=== PATIENT | male | born 1990 | race Caucasian/White ===

== ENCOUNTER 2016-12-05 01:29 | Emergency (ER) | payer OTHER ==
[~2016-12-05] VITALS: Ht 172.7 cm; Wt 111.0 kg
[2016-12-05] MEDS ORDERED: ONDANSETRON 4MG ODT PO ONE (03:30)
[2016-12-05] MEDS ORDERED: HYDROCODONE/ACETAMINOPHEN 5/325MG TABLET PO ONE (03:30)
[2016-12-05 04:48] VITALS: BP 123/64
== END 2016-12-05 05:17 | disposition home or self-care (01) ==
LOC: ER 01:29
DX: S62.306A Unspecified fracture of fifth metacarpal bone, right hand, initial encounter for closed fracture (principal); F17.210 Nicotine dependence, cigarettes, uncomplicated; F12.10 Cannabis abuse, uncomplicated; W22.01XA Walked into wall, initial encounter; Y93.89 Activity, other specified; Y92.89 Other specified places as the place of occurrence of the external cause; Y99.8 Other external cause status
CPT/HCPCS: 29125; 73090; 73130; 99284; Q0162

== ENCOUNTER 2024-07-17 09:38 | Emergency (ER) | payer SELFPAY ==
[~2024-07-17] VITALS: Ht 170.2 cm; Wt 102.0 kg
[2024-07-17 09:47] VITALS: BP 141/67; PULSE 120; RESP 19; TEMP 98.6; O2SAT 100
[2024-07-17] MEDS: FUROSEMIDE 40MG/4ML VIAL IVP SCH (11:21)
[2024-07-17 11:33] LABS: BASOPHILS % 1.7 % (0.0-2.0); DIFFERENTIAL COMMENT 0; EOSINOPHILS % 0.5 % (0.0-5.0); HEMATOCRIT. 26.6 % (42.0-52.0); HEMOGLOBIN. 8.7 g/dL (14.0-18.0); MEAN CORPUSCULAR HEMOGLOBIN 35.7 pg (28.0-32.0); MEAN CORPUSCULAR HGB CONC 32.8 g/dL (31.0-37.0); MEAN CORPUSCULAR VOLUME 108.7 fL (80.0-94.0); MONOCYTES % 8.2 % (2.0-8.0); NEUTROPHILS % 79.6 % (40.0-76.0); PLATELET 110 x1000/uL (130-400); RED BLOOD CELL COUNT 2.45 mill/uL (4.7-6.1); RED CELL DISTRIBUTION WIDTH 16.4 % (11.6-14.6); WHITE BLOOD COUNT 6.5 x1000/uL (4.5-11.0)
[2024-07-17 11:40] LABS: CHLORIDE 98 mEq/L (98-107); SODIUM 130 mEq/L (136-145)
[2024-07-17 11:42] LABS: CARBON DIOXIDE 24 mEq/L (21-32)
[2024-07-17 11:46] LABS: CREATININE 0.7 mg/dL (0.6-1.3)
[2024-07-17 11:47] LABS: GLUCOSE 104 mg/dL (70-105); UREA NITROGEN BLOOD 8 mg/dL (9-23)
[2024-07-17 12:29] LABS: TROPONIN I HIGH SENSITIVITY < 4 ng/L (3.0-53)
[2024-07-17 12:46] LABS: ALANINE AMINOTRANSFERASE 81 IU/L (10-49); ALBUMIN 3.5 g/dL (3.2-4.8); ASPARTATE AMINOTRANSFERASE 255 IU/L (<34)
[2024-07-17 12:47] LABS: BILIRUBIN TOTAL 4.4 mg/dL (0.1-1.0); PROTEIN TOTAL 9.2 g/dL (6.0-8.3)
[2024-07-17 15:12] LABS: TROPONIN I HIGH SENSITIVITY < 4 ng/L (3.0-53)
== END 2024-07-17 15:20 | disposition left against medical advice (07) ==
LOC: ER 09:48 → EDBEDREQ 11:05 → ER 15:20
DX: R60.0 Localized edema (principal); K74.60 Unspecified cirrhosis of liver; D64.9 Anemia, unspecified; F12.90 Cannabis use, unspecified, uncomplicated; F10.20 Alcohol dependence, uncomplicated
CPT/HCPCS: 99285; 93970; 96374; 71045; 80076; 80048; 83880; 85025; 84484; 93005; 36415; J1940

== ENCOUNTER 2025-02-14 18:45 | Inpatient (IN) | payer MEDICAID ==
[~2025-02-14] VITALS: Ht 167.6 cm; Wt 99.8 kg
[2025-02-14 19:16] LABS: MEAN PLATELET VOLUME 8.4 fl (7.4-10.4); PLATELET 101 x1000/uL (130-400); RED BLOOD CELL COUNT 1.29 mill/uL (4.7-6.1); RED CELL DISTRIBUTION WIDTH 25.8 % (11.6-14.6)
[2025-02-14 19:21] LABS: HEMATOCRIT. 13.8 % (42.0-52.0); HEMOGLOBIN. 4.2 g/dL (14.0-18.0)
[2025-02-14 19:30] LABS: CREATININE 0.9 mg/dL (0.6-1.3); UREA NITROGEN BLOOD 23 mg/dL (9-23)
[2025-02-14 19:31] LABS: ETHANOL BLOOD < 10 mg/dL (<10)
[2025-02-14 19:32] LABS: ASPARTATE AMINOTRANSFERASE 156 IU/L (<34); BILIRUBIN DIRECT 4.9 mg/dL (<=3.0); BILIRUBIN TOTAL 8.6 mg/dL (0.1-1.0); INR 2.6; PROTEIN TOTAL 8.4 g/dL (6.0-8.3)
[2025-02-14 19:37] LABS: LYMPHOCYTES % MANUAL 4.0 % (20.0-50.0); MONOCYTES % MANUAL 3.0 % (2.0-8.0); NEUTROPHILS % MANUAL 93.0 % (45.0-75.0); PLATELET ESTIMATE SLIGHTLY DECREASED
[2025-02-14] MEDS: PANTOPRAZOLE SODIUM 40 MG/VIAL IV ONE (19:56)
[2025-02-14] MEDS: CEFTRIAXONE 1GM/50ML 50 ML IV ONE (19:57)
[2025-02-14] MEDS: FOLIC ACID 1 MG, THIAMINE HCL 100 MG, MVI, ADULT NO.1 10 ML in DEXTROSE 5% WATER 1,000 ML IV ONE (20:19)
[2025-02-14] MEDS ORDERED: ONDANSETRON HCL 4MG/2ML INJ IV PRN (23:45)
[2025-02-14] MEDS ORDERED: DOCUSATE SODIUM 100MG CAPSULE PO PRN (23:45)
[2025-02-14] MEDS ORDERED: FOLIC ACID 1 MG, THIAMINE HCL 100 MG, MVI, ADULT NO.1 10 ML in DEXTROSE 5% WATER 1,000 ML IV ONE (23:45)
[2025-02-14] MEDS ORDERED: PHENOBARBITAL SODIUM 65MG/ML 1ML IV PRN (23:45)
[2025-02-14] MEDS ORDERED: LORAZEPAM 1MG TABLET PO PRN (23:45)
[2025-02-14] MEDS ORDERED: CLONIDINE 0.1MG TABLET PO PRN (23:45)
[2025-02-15] VITALS (15 sets, daily range): BP systolic 106–135; BP diastolic 50–101; PULSE 90–122; RESP 16–22; TEMP 36.5–38.11416; O2SAT 96–100
[2025-02-15 00:27] LABS: FOLIC ACID (FOLATE) SERUM 9.61 ng/mL (>5.38)
[2025-02-15 00:38] LABS: VITAMIN B12 SERUM > 2000 pg/mL (211-911)
[2025-02-15 03:21] LABS: PLATELET 94 x1000/uL (130-400); RED BLOOD CELL COUNT 1.56 mill/uL (4.7-6.1); RED CELL DISTRIBUTION WIDTH 25.0 % (11.6-14.6)
[2025-02-15 05:08] LABS: CREATININE 1.0 mg/dL (0.6-1.3)
[2025-02-15 05:09] LABS: LDL CHOLESTEROL 60 mg/dL (5-100); TRIGLYCERIDE 97 mg/dL (0-150); UREA NITROGEN BLOOD 27 mg/dL (9-23)
[2025-02-15 05:10] LABS: PHOSPHORUS 1.8 mg/dL (2.5-4.9)
[2025-02-15 05:13] LABS: T4 FREE 0.68 ng/dL (0.89-1.76)
[2025-02-15 05:44] LABS: BASOPHILS % 0.2 % (0.0-2.0); EOSINOPHILS % 0.0 % (0.0-5.0); LYMPHOCYTES % 12.8 % (20.0-50.0); MEAN PLATELET VOLUME 8.6 fl (7.4-10.4); MONOCYTES % 9.0 % (2.0-8.0); NEUTROPHILS % 78.0 % (40.0-76.0); PLATELET 101 x1000/uL (130-400); RED BLOOD CELL COUNT 1.50 mill/uL (4.7-6.1); RED CELL DISTRIBUTION WIDTH 24.7 % (11.6-14.6)
[2025-02-15 05:46] LABS: HEMATOCRIT. 15.4 % (42.0-52.0); HEMOGLOBIN. 4.9 g/dL (14.0-18.0)
[2025-02-15] MEDS: POTASSIUM PHOSPHATE 15 MMOL in DEXT 5% WATER 245 ML IV NR (07:00)
[2025-02-15] MEDS: CHLORDIAZEPOXIDE 25MG CAPSULE PO SCH (07:25)
[2025-02-15] MEDS: DEXT 5%/0.9% NACL 1,000 ML IV SCH (07:27)
[2025-02-15] MEDS: BLOOD SUGAR DIAGNOSTIC STRIP TEST SCH (07:40)
[2025-02-15] MEDS: PANTOPRAZOLE SODIUM 40 MG/VIAL IV SCH (11:10)
[2025-02-15] MEDS: THIAMINE HCL 100 MG/1 ML 2ML VIAL IM SCH (11:11)
[2025-02-15] MEDS: FERROUS SULFATE 325MG TABLET PO SCH (14:45)
[2025-02-15] MEDS: ASCORBIC ACID 500 MG TABLET PO SCH (15:28)
[2025-02-15] MEDS: PHYTONADIONE 10MG/ML INJ SUBCUT SCH (15:28)
[2025-02-15 16:51] LABS: PLATELET 108 x1000/uL (130-400); RED BLOOD CELL COUNT 2.02 mill/uL (4.7-6.1); RED CELL DISTRIBUTION WIDTH 20.7 % (11.6-14.6)
[2025-02-15 16:52] LABS: LACTATE DEHYDROGENASE 183 IU/L (120-246)
[2025-02-15] MEDS: ACETAMINOPHEN 650MG SUPP PR SCH (17:00)
[2025-02-15] MEDS: SUCRALFATE 1G TABLET PO SCH (17:40)
[2025-02-15 18:14] LABS: HEPATITIS A AB IGM NEGATIVE (Negative)
[2025-02-15 18:15] LABS: HEPATITIS B CORE AB IGM NEGATIVE (Negative); HEPATITIS C AB NON REACTIVE (Neg) (Negative)
[2025-02-15] MEDS: ACETAMINOPHEN 1000MG/100ML 100 ML IV PRN (18:30)
[2025-02-15] MEDS: CEFTRIAXONE 1GM/50ML 50 ML IV NR (20:56)
[2025-02-15] MEDS: LACTULOSE 20G/30ML UDC PO SCH (21:00)
[2025-02-15 22:35] LABS: INR 2.1
[2025-02-16] VITALS (10 sets, daily range): BP systolic 101–129; BP diastolic 46–74; PULSE 95–119; RESP 18–44; TEMP 36.3–37.9; O2SAT 93–100
[2025-02-16] MEDS ORDERED: ACETAMINOPHEN 650MG SUPP PR PRN (01:00)
[2025-02-16] MEDS: ACETAMINOPHEN 325MG TABLET PO PRN (01:42)
[2025-02-16 06:08] LABS: CREATININE 1.1 mg/dL (0.6-1.3); UREA NITROGEN BLOOD 26 mg/dL (9-23)
[2025-02-16 06:10] LABS: ASPARTATE AMINOTRANSFERASE 108 IU/L (<34); BILIRUBIN DIRECT 7.8 mg/dL (<=3.0); BILIRUBIN TOTAL 10.9 mg/dL (0.1-1.0); PROTEIN TOTAL 7.8 g/dL (6.0-8.3)
[2025-02-16 06:11] LABS: INR 2.1
[2025-02-16 06:15] LABS: BASOPHILS % 0.7 % (0.0-2.0); EOSINOPHILS % 0.4 % (0.0-5.0); LYMPHOCYTES % 8.7 % (20.0-50.0); MEAN PLATELET VOLUME 7.7 fl (7.4-10.4); MONOCYTES % 10.6 % (2.0-8.0); NEUTROPHILS % 79.6 % (40.0-76.0); PLATELET 102 x1000/uL (130-400); RED BLOOD CELL COUNT 1.97 mill/uL (4.7-6.1); RED CELL DISTRIBUTION WIDTH 23.2 % (11.6-14.6)
[2025-02-16 07:03] LABS: HEMATOCRIT. 20.3 % (42.0-52.0); HEMOGLOBIN. 6.6 g/dL (14.0-18.0)
[2025-02-16 07:15] LABS: ADD RBC MORPHOLOGY NO
[2025-02-16] MEDS ORDERED: POTASSIUM CHLORIDE 20 MEQ in DEXT 5% WATER 90 ML IV ONE (11:00)
[2025-02-16] MEDS: KCL 20MEQ/100ML PREMIX 100 ML IV ONE (11:27)
[2025-02-16 12:53] LABS: CLARITY URINE CLOUDY (CLEAR); COLOR URINE ORANGE (YELLOW); GLUCOSE URINE NEGATIVE (NEGATIVE); KETONES URINE NEGATIVE (NEGATIVE); LEUKOCYTE ESTERASE URINE 1+ (NEGATIVE); NITRITE URINE POSITIVE (NEGATIVE); OCCULT BLOOD URINE NEGATIVE (NEGATIVE); PH URINE 5.5 (4.5-8.0); PROTEIN URINE TRACE (NEGATIVE); SPECIFIC GRAVITY URINE 1.019 (1.005-1.030); UROBILINOGEN URINE 1.0 E.U./dL (0.2-1.0)
[2025-02-16 13:19] LABS: *AMPHETAMINES SCREEN URINE NEGATIVE (NEGATIVE); *BARBITURATES SCREEN URINE NEGATIVE (NEGATIVE); *BENZODIAZEPINES SCREEN URINE NEGATIVE (NEGATIVE); *COCAINE SCREEN URINE NEGATIVE (NEGATIVE); CANNABINOID URINE SCREEN PRESUMPTIVE POSITIVE (NEGATIVE); METHADONE URINE SCREEN NEGATIVE (NEGATIVE); OPIATES URINE SCREEN NEGATIVE (NEGATIVE); PHENCYCLIDINE URINE SCREEN NEGATIVE (NEGATIVE); SQUAMOUS EPITHELIAL CELL URINE FEW /lpf (RARE/1+)
[2025-02-16 13:20] LABS: ECSTASY MDMA SCREEN URINE NEGATIVE (NEGATIVE); RBC URINE NONE SEEN /hpf (0-2); WBC URINE 0-2 /hpf (0-2)
[2025-02-16 13:21] LABS: BACTERIA URINE 3+
[2025-02-16] MEDS: OCTREOTIDE 1,000 MCG in SODIUM CHLORIDE 0.9% 98 ML IV SCH (14:29)
[2025-02-16] MEDS: ACETAMINOPHEN 650MG/20.3ML UDC PO PRN (15:50)
[2025-02-17] VITALS (22 sets, daily range): BP systolic 101–121; BP diastolic 45–92; PULSE 99–117; RESP 21–39; TEMP 36.5–37.5; O2SAT 93–98
[2025-02-17 07:29] LABS: INR 1.9
[2025-02-17 07:34] LABS: PLATELET 114 x1000/uL (130-400); RED BLOOD CELL COUNT 2.15 mill/uL (4.7-6.1); RED CELL DISTRIBUTION WIDTH 24.9 % (11.6-14.6)
[2025-02-17 07:41] LABS: UREA NITROGEN BLOOD 21 mg/dL (9-23)
[2025-02-17 07:43] LABS: CREATININE 1.0 mg/dL (0.6-1.3)
[2025-02-17 07:45] LABS: ASPARTATE AMINOTRANSFERASE 91 IU/L (<34)
[2025-02-17 07:46] LABS: BILIRUBIN DIRECT 8.0 mg/dL (<=3.0); BILIRUBIN TOTAL 11.1 mg/dL (0.1-1.0); PHOSPHORUS 3.7 mg/dL (2.5-4.9); PROTEIN TOTAL 7.7 g/dL (6.0-8.3)
[2025-02-17] MEDS: POTASSIUM CHLORIDE 20MEQ/PACKET PO SCH (08:58)
[2025-02-17] MEDS: FERROUS SULFATE 325MG TABLET PO SCH (17:18)
[2025-02-17] MEDS: MELATONIN 3MG TABLET PO NR (22:12)
[2025-02-18] VITALS (17 sets, daily range): BP systolic 100–131; BP diastolic 42–72; PULSE 93–124; RESP 28–54; TEMP 36.1–37.1; O2SAT 93–97
[2025-02-18 07:10] LABS: HEMATOCRIT. 25.8 % (42.0-52.0); HEMOGLOBIN. 8.7 g/dL (14.0-18.0); MEAN PLATELET VOLUME 7.5 fl (7.4-10.4); PLATELET 119 x1000/uL (130-400); RED BLOOD CELL COUNT 2.57 mill/uL (4.7-6.1); RED CELL DISTRIBUTION WIDTH 24.5 % (11.6-14.6)
[2025-02-18 07:19] LABS: INR 2.0
[2025-02-18 07:21] LABS: CREATININE 1.3 mg/dL (0.6-1.3); UREA NITROGEN BLOOD 24 mg/dL (9-23)
[2025-02-18 07:23] LABS: ASPARTATE AMINOTRANSFERASE 88 IU/L (<34); BILIRUBIN DIRECT 12.2 mg/dL (<=3.0); PHOSPHORUS 3.3 mg/dL (2.5-4.9); PROTEIN TOTAL 7.8 g/dL (6.0-8.3)
[2025-02-18 07:28] LABS: BILIRUBIN TOTAL 17.1 mg/dL (0.1-1.0)
[2025-02-18] MEDS: KCL 20MEQ/100ML PREMIX 100 ML IV SCH ×2 (10:34→17:05)
[2025-02-18] MEDS: LACTULOSE 20G/30ML UDC PO SCH (12:09)
[2025-02-18] MEDS: CHLORDIAZEPOXIDE 25MG CAPSULE PO SCH (13:11)
[2025-02-18] MEDS: CEFTRIAXONE 1GM/50ML 50 ML IV SCH (14:17)
[2025-02-18] MEDS: DIAZEPAM 5 MG/ML 2ML SYR IV PRN (14:18)
[2025-02-18 15:08] LABS: LYMPHOCYTES % MANUAL 4.0 % (20.0-50.0); MONOCYTES % MANUAL 19.0 % (2.0-8.0); NEUTROPHILS % MANUAL 77.0 % (45.0-75.0); NUCLEATED RED BLOOD CELLS 3 /100 WBC; PLATELET ESTIMATE NORMAL
[2025-02-19] VITALS (40 sets, daily range): BP systolic 96–135; BP diastolic 37–57; PULSE 91–116; RESP 16–44; TEMP 35.9–36.8; O2SAT 92–100
[2025-02-19 06:28] LABS: HEMATOCRIT. 23.5 % (42.0-52.0); HEMOGLOBIN. 7.9 g/dL (14.0-18.0); MEAN PLATELET VOLUME 7.5 fl (7.4-10.4); PLATELET 111 x1000/uL (130-400); RED BLOOD CELL COUNT 2.32 mill/uL (4.7-6.1); RED CELL DISTRIBUTION WIDTH 27.7 % (11.6-14.6)
[2025-02-19 06:52] LABS: ASPARTATE AMINOTRANSFERASE 74 IU/L (<34); BILIRUBIN DIRECT 13.0 mg/dL (<=3.0); BILIRUBIN TOTAL 17.6 mg/dL (0.1-1.0)
[2025-02-19 06:53] LABS: PROTEIN TOTAL 7.3 g/dL (6.0-8.3)
[2025-02-19 07:02] LABS: INR 2.3
[2025-02-19 07:11] LABS: UREA NITROGEN BLOOD 44 mg/dL (9-23)
[2025-02-19 07:13] LABS: ASPARTATE AMINOTRANSFERASE 73 IU/L (<34); BILIRUBIN DIRECT 13.0 mg/dL (<=3.0); BILIRUBIN TOTAL 17.6 mg/dL (0.1-1.0); PROTEIN TOTAL 7.3 g/dL (6.0-8.3)
[2025-02-19 07:57] LABS: CREATININE 2.6 mg/dL (0.6-1.3)
[2025-02-19] MEDS: KCL 20MEQ/100ML PREMIX 100 ML IV SCH (09:41)
[2025-02-19] MEDS: PHYTONADIONE 10MG/ML INJ SUBCUT SCH (12:34)
[2025-02-19] MEDS ORDERED: DOXYCYCLINE HYCLATE 100 MG/VIAL IV ONE (14:00)
[2025-02-19] MEDS ORDERED: ETOMIDATE 2MG/ML 10ML VIAL IV ONE (14:17)
[2025-02-19] MEDS: PIPERACILLIN/TAZO 3.375G/50ML 50 ML IV SCH (14:56)
[2025-02-19] MEDS: ALBUMIN HUMAN 25GM/100ML (25%) IV SCH (14:59)
[2025-02-19 15:14] LABS: BG BASE EXCESS -10.8 mmol/L (-2.0-3.0); BG CARBOXYHEMOGLOBIN 2.3 % (0.5-1.5); BG DEOXYHEMOGLOBIN 7.7 % (0.0-5.0); BG FLOW(L/min) 5.00 L/min; BG FRACTION INSPIRED OXYGEN 40; BG HCO3 ACT 12.8 mmol/L (21.0-28.0); BG METHEMOGLOBIN 0.0 % (0.5-1.5); BG OXYGEN SATURATION 92.1 % (94.0-98.0); BG OXYHEMOGLOBIN 90.0 % (94.0-98.0); BG PCO2 21.7 mmHg (35.0-48.0); BG PH 7.387 (7.350-7.450); BG PO2 67.1 mmHg (83.0-108.0); BG SAMPLE SITE RIGHT RADIAL; BG TOTAL HEMOGLOBIN 8.6 g/dL (13.5-17.5); BG VENT MODE NASAL CANNULA
[2025-02-19] MEDS: DOXYCYCLINE 100MG/100ML 100 ML IV SCH (15:28)
[2025-02-19] MEDS: VANCOMYCIN 2GM PMX (XELLIA) 400 ML IV SCH (15:28)
[2025-02-19] MEDS: LACTULOSE ENEMA 1,000ML BOTTLE PR PRN (16:31)
[2025-02-19] MEDS ORDERED: NOREPINEPHRINE 8 MG in DEXT 5% WATER 242 ML IV PRN (17:00)
[2025-02-19] MEDS ORDERED: PHENYLEPHRINE 50 MG in DEXT 5% WATER 245 ML IV PRN (17:00)
[2025-02-19] MEDS ORDERED: NOREPINEPHRINE 8MG/250ML PMX 242 ML IV PRN (17:15)
[2025-02-19 17:24] LABS: BAND% 11.0 % (1.0-6.0); LYMPHOCYTES % MANUAL 14.0 % (20.0-50.0); MONOCYTES % MANUAL 15.0 % (2.0-8.0); NEUTROPHILS % MANUAL 60.0 % (45.0-75.0); PLATELET ESTIMATE DECREASED
[2025-02-19] MEDS ORDERED: PHENYLEPHRINE 50MG/250ML PMX IV PRN (17:30)
[2025-02-19] MEDS: METOCLOPRAMIDE HCL 10MG/2ML VIAL IV SCH (18:33)
[2025-02-19] MEDS: PROPOFOL 10MG/ML 100ML 100 ML IV PRN (18:34)
[2025-02-19 18:57] LABS: BG BASE EXCESS -14.2 mmol/L (-2.0-3.0); BG CARBOXYHEMOGLOBIN 2.3 % (0.5-1.5); BG DEOXYHEMOGLOBIN 0.3 % (0.0-5.0); BG FRACTION INSPIRED OXYGEN 100; BG HCO3 ACT 15.2 mmol/L (21.0-28.0); BG METHEMOGLOBIN 0.2 % (0.5-1.5); BG OXYGEN SATURATION 99.7 % (94.0-98.0); BG OXYHEMOGLOBIN 97.2 % (94.0-98.0); BG PCO2 52.8 mmHg (35.0-48.0); BG PEEP (cmH2O) 5.0 cmH2O; BG PH 7.077 (7.350-7.450); BG PO2 215.4 mmHg (83.0-108.0); BG SAMPLE SITE RIGHT RADIAL; BG TIDAL VOLUME(mL) 450.0 mL; BG TOTAL HEMOGLOBIN 8.9 g/dL (13.5-17.5); BG TOTAL RESPIRATORY RATE 16 b/min; BG VENT MODE VENT - AC; BG VENT RATE 16.0 set
[2025-02-19] MEDS: RIFAXIMIN 550 MG TABLET NG SCH (21:26)
[2025-02-19 21:28] LABS: HEMATOCRIT. 25.6 % (42.0-52.0); HEMOGLOBIN. 8.0 g/dL (14.0-18.0); MEAN PLATELET VOLUME 7.6 fl (7.4-10.4); PLATELET 126 x1000/uL (130-400); RED BLOOD CELL COUNT 2.43 mill/uL (4.7-6.1); RED CELL DISTRIBUTION WIDTH 27.1 % (11.6-14.6)
[2025-02-19 21:49] LABS: UREA NITROGEN BLOOD 50 mg/dL (9-23)
[2025-02-19 21:51] LABS: PHOSPHORUS 6.7 mg/dL (2.5-4.9)
[2025-02-19 21:54] LABS: CREATININE 3.4 mg/dL (0.6-1.3)
[2025-02-19] MEDS: NOREPINEPHRINE 8MG/250ML PMX 250 ML IV PRN (22:06)
[2025-02-19 22:09] LABS: EOSINOPHILS % MANUAL 2.0 % (0.0-5.0); LYMPHOCYTES % MANUAL 14.0 % (20.0-50.0); MONOCYTES % MANUAL 6.0 % (2.0-8.0); NEUTROPHILS % MANUAL 78.0 % (45.0-75.0); PLATELET ESTIMATE DECREASED
[2025-02-20] VITALS (95 sets, daily range): BP systolic 94–156; BP diastolic 31–140; PULSE 88–123; RESP 19–38; TEMP 36.4–37.2; O2SAT 19–100
[2025-02-20] MEDS ORDERED: LACTULOSE 20G/30ML UDC NG SCH ×2 (00:30→11:00)
[2025-02-20] MEDS: METOCLOPRAMIDE HCL 10MG/2ML VIAL IV SCH ×2 (02:14→10:55)
[2025-02-20] MEDS: LACTULOSE 20G/30ML UDC NG SCH ×3 (02:15→17:04)
[2025-02-20 05:22] LABS: HEMATOCRIT. 25.8 % (42.0-52.0); HEMOGLOBIN. 8.2 g/dL (14.0-18.0); MEAN PLATELET VOLUME 7.6 fl (7.4-10.4); PLATELET 134 x1000/uL (130-400); RED BLOOD CELL COUNT 2.49 mill/uL (4.7-6.1); RED CELL DISTRIBUTION WIDTH 26.9 % (11.6-14.6)
[2025-02-20 05:42] LABS: CREATININE 3.9 mg/dL (0.6-1.3)
[2025-02-20 05:43] LABS: TRIGLYCERIDE 132 mg/dL (0-150); UREA NITROGEN BLOOD 58 mg/dL (9-23)
[2025-02-20 05:44] LABS: ASPARTATE AMINOTRANSFERASE 79 IU/L (<34)
[2025-02-20 05:45] LABS: BILIRUBIN DIRECT 14.4 mg/dL (<=3.0); PHOSPHORUS 6.6 mg/dL (2.5-4.9); PROTEIN TOTAL 7.6 g/dL (6.0-8.3)
[2025-02-20 05:52] LABS: BILIRUBIN TOTAL 19.3 mg/dL (0.1-1.0)
[2025-02-20] MEDS: LACTULOSE 20G/30ML UDC PO SCH (08:34)
[2025-02-20] MEDS: KCL 20MEQ/100ML PREMIX 100 ML IV SCH ×2 (08:34→16:17)
[2025-02-20] MEDS ORDERED: DOXYCYCLINE HYCLATE 100 MG/VIAL IV SCH (09:00)
[2025-02-20] MEDS: VANCOMYCIN 1.5GM PMX (XELLIA) 300 ML IV SCH (09:16)
[2025-02-20] MEDS: DOXYCYCLINE 100MG/100ML 100 ML IV SCH (09:16)
[2025-02-20 09:31] LABS: BG BASE EXCESS -12.9 mmol/L (-2.0-3.0); BG CARBOXYHEMOGLOBIN 2.7 % (0.5-1.5); BG DEOXYHEMOGLOBIN 2.3 % (0.0-5.0); BG FRACTION INSPIRED OXYGEN 70; BG HCO3 ACT 12.7 mmol/L (21.0-28.0); BG METHEMOGLOBIN 0.3 % (0.5-1.5); BG OXYGEN SATURATION 97.6 % (94.0-98.0); BG OXYHEMOGLOBIN 94.7 % (94.0-98.0); BG PCO2 28.3 mmHg (35.0-48.0); BG PEEP (cmH2O) 5.0 cmH2O; BG PH 7.271 (7.350-7.450); BG PIP 10.0 cmH2O; BG PO2 96.4 mmHg (83.0-108.0); BG SAMPLE SITE RIGHT RADIAL; BG TOTAL HEMOGLOBIN 8.5 g/dL (13.5-17.5); BG TOTAL RESPIRATORY RATE 27 b/min; BG VENT MODE VENT - P/C; BG VENT RATE 16.0 set
[2025-02-20 10:11] LABS: BAND% 23.0 % (1.0-6.0); LYMPHOCYTES % MANUAL 8.0 % (20.0-50.0); MONOCYTES % MANUAL 7.0 % (2.0-8.0); NEUTROPHILS % MANUAL 62.0 % (45.0-75.0)
[2025-02-20 10:12] LABS: PLATELET ESTIMATE NORMAL
[2025-02-20] MEDS: SODIUM BICARBONATE 8.4% 50MEQ/50ML SYR IV NR (10:14)
[2025-02-20] MEDS ORDERED: LIDOCAINE HCL 1% 10 MG/ML 10ML VIAL ONE (10:27)
[2025-02-20] MEDS: SODIUM BICARBONATE 150 MEQ in DEXTROSE 5% WATER 850 ML IV SCH (10:56)
[2025-02-20 15:32] LABS: INR 2.2
[2025-02-20 15:41] LABS: TROPONIN I HIGH SENSITIVITY 4 ng/L (3.0-53)
[2025-02-20] MEDS: POTASSIUM CHLORIDE 20MEQ TABLET SR PO SCH (16:18)
[2025-02-20] MEDS: MEROPENEM 1G/100ML 100 ML IV SCH (17:04)
[2025-02-20 18:12] LABS: BG BASE EXCESS -8.9 mmol/L (-2.0-3.0); BG CARBOXYHEMOGLOBIN 2.7 % (0.5-1.5); BG DEOXYHEMOGLOBIN 0.1 % (0.0-5.0); BG FRACTION INSPIRED OXYGEN 100; BG HCO3 ACT 15.7 mmol/L (21.0-28.0); BG METHEMOGLOBIN 0.4 % (0.5-1.5); BG OXYGEN SATURATION 99.9 % (94.0-98.0); BG OXYHEMOGLOBIN 96.8 % (94.0-98.0); BG PCO2 28.7 mmHg (35.0-48.0); BG PEEP (cmH2O) 5.0 cmH2O; BG PH 7.355 (7.350-7.450); BG PIP 10.0 cmH2O; BG PO2 137.4 mmHg (83.0-108.0); BG SAMPLE SITE RIGHT RADIAL; BG TOTAL HEMOGLOBIN 7.8 g/dL (13.5-17.5); BG TOTAL RESPIRATORY RATE 32 b/min; BG VENT MODE VENT - P/C; BG VENT RATE 28.0 set
[2025-02-20] MEDS: IPRATROPIUM BROMIDE (0.02%) 0.5MG/2.5ML NEB HHN SCH (20:36)
[2025-02-20] MEDS ORDERED: DEXMEDETOMIDINE 400 MCG/100 ML 100 ML IV PRN (21:15)
[2025-02-20] MEDS: HYDROMORPHONE HCL/PF 2MG/ML INJ IV PRN (21:18)
[2025-02-20] MEDS: DEXTROSE 50% WATER 50ML SYRINGE IV PRN (21:44)
[2025-02-20] MEDS ORDERED: DEXT 10% WATER 1,000 ML IV SCH (22:15)
[2025-02-20] MEDS: SODIUM BICARBONATE 150 MEQ in DEXT 10% WATER 850 ML IV SCH (23:28)
[2025-02-21] VITALS (113 sets, daily range): BP systolic 78–168; BP diastolic 24–123; PULSE 86–126; RESP 23–36; TEMP 37.1–39.00312; O2SAT 95–100
[2025-02-21] MEDS: DEXMEDETOMIDINE 400 MCG/100 ML 100 ML IV PRN (00:27)
[2025-02-21 05:24] LABS: BASOPHILS % 0.2 % (0.0-2.0); EOSINOPHILS % 0.2 % (0.0-5.0); HEMATOCRIT. 23.8 % (42.0-52.0); HEMOGLOBIN. 7.7 g/dL (14.0-18.0); LYMPHOCYTES % 7.2 % (20.0-50.0); MEAN PLATELET VOLUME 8.0 fl (7.4-10.4); MONOCYTES % 13.0 % (2.0-8.0); NEUTROPHILS % 79.4 % (40.0-76.0); PLATELET 154 x1000/uL (130-400); RED BLOOD CELL COUNT 2.35 mill/uL (4.7-6.1); RED CELL DISTRIBUTION WIDTH 26.1 % (11.6-14.6)
[2025-02-21 05:48] LABS: CREATININE 4.5 mg/dL (0.6-1.3); UREA NITROGEN BLOOD 52 mg/dL (9-23)
[2025-02-21 05:50] LABS: ASPARTATE AMINOTRANSFERASE 141 IU/L (<34); BILIRUBIN DIRECT 14.7 mg/dL (<=3.0); BILIRUBIN TOTAL 19.7 mg/dL (0.1-1.0); PHOSPHORUS 4.4 mg/dL (2.5-4.9); PROTEIN TOTAL 7.3 g/dL (6.0-8.3)
[2025-02-21 08:11] LABS: BG BASE EXCESS -9.5 mmol/L (-2.0-3.0); BG CARBOXYHEMOGLOBIN 1.9 % (0.5-1.5); BG DEOXYHEMOGLOBIN 3.1 % (0.0-5.0); BG FRACTION INSPIRED OXYGEN 100; BG HCO3 ACT 15.3 mmol/L (21.0-28.0); BG METHEMOGLOBIN 0.2 % (0.5-1.5); BG OXYGEN SATURATION 96.8 % (94.0-98.0); BG OXYHEMOGLOBIN 94.8 % (94.0-98.0); BG PCO2 29.3 mmHg (35.0-48.0); BG PEEP (cmH2O) 5.0 cmH2O; BG PH 7.335 (7.350-7.450); BG PO2 86.9 mmHg (83.0-108.0); BG SAMPLE SITE RIGHT RADIAL; BG TOTAL HEMOGLOBIN 8.3 g/dL (13.5-17.5); BG VENT MODE VENT - AC/PC; BG VENT RATE 28.0 set
[2025-02-21] MEDS ORDERED: DEXTROSE 50% WATER 50ML SYRINGE IV PRN (08:30)
[2025-02-21] MEDS: NOREPINEPHRINE 32 MG in DEXT 5% WATER 218 ML IV PRN (10:37)
[2025-02-21 10:58] LABS: INR 2.7
[2025-02-21] MEDS: PHENYLEPHRINE 50MG/250ML PMX 250 ML IV PRN (11:02)
[2025-02-21 11:56] LABS: BG BASE EXCESS -8.4 mmol/L (-2.0-3.0); BG CARBOXYHEMOGLOBIN 1.8 % (0.5-1.5); BG DEOXYHEMOGLOBIN 1.1 % (0.0-5.0); BG FRACTION INSPIRED OXYGEN 80; BG HCO3 ACT 15.4 mmol/L (21.0-28.0); BG METHEMOGLOBIN 0.2 % (0.5-1.5); BG OXYGEN SATURATION 98.9 % (94.0-98.0); BG OXYHEMOGLOBIN 96.9 % (94.0-98.0); BG PCO2 25.9 mmHg (35.0-48.0); BG PEEP (cmH2O) 5.0 cmH2O; BG PH 7.393 (7.350-7.450); BG PO2 107.7 mmHg (83.0-108.0); BG SAMPLE SITE RIGHT RADIAL; BG TOTAL HEMOGLOBIN 8.2 g/dL (13.5-17.5); BG VENT MODE AC/PC; BG VENT RATE 28.0 set
[2025-02-21] MEDS ORDERED: NALOXONE HCL 0.4MG/ML VIAL IV PRN (12:00)
[2025-02-21] MEDS: SODIUM BICARBONATE 8.4% 50MEQ/50ML SYR IV NR (12:50)
[2025-02-21] MEDS: POTASSIUM CHLORIDE 20MEQ TABLET SR PO SCH ×2 (14:17→16:14)
[2025-02-21] MEDS: HYDROCORTISONE SOD SUCCINATE 100 MG/2 ML VIAL IV SCH (17:41)
[2025-02-21] MEDS: LACTATED RINGERS 500 ML IV ONE (18:40)
[2025-02-21] MEDS: MEROPENEM 500MG/50ML IV SCH (21:21)
[2025-02-21] MEDS: HYDROMORPHONE HCL/PF 2MG/ML INJ IV PRN (21:40)
[2025-02-22] VITALS (112 sets, daily range): BP systolic 102–151; BP diastolic 32–68; PULSE 66–106; RESP 18–33; TEMP 36.114–40.3; O2SAT 94–100
[2025-02-22 06:31] LABS: BASOPHILS % 0.2 % (0.0-2.0); EOSINOPHILS % 0.0 % (0.0-5.0); HEMATOCRIT. 21.4 % (42.0-52.0); LYMPHOCYTES % 7.9 % (20.0-50.0); MEAN PLATELET VOLUME 8.3 fl (7.4-10.4); MONOCYTES % 6.7 % (2.0-8.0); NEUTROPHILS % 85.2 % (40.0-76.0); PLATELET 131 x1000/uL (130-400); RED BLOOD CELL COUNT 2.16 mill/uL (4.7-6.1); RED CELL DISTRIBUTION WIDTH 25.9 % (11.6-14.6)
[2025-02-22 06:47] LABS: HEMOGLOBIN. 6.9 g/dL (14.0-18.0)
[2025-02-22] MEDS: KCL 20MEQ/100ML PREMIX 100 ML IV NR (06:49)
[2025-02-22 07:03] LABS: CREATININE 4.6 mg/dL (0.6-1.3)
[2025-02-22 07:04] LABS: UREA NITROGEN BLOOD 59 mg/dL (9-23)
[2025-02-22 07:05] LABS: ASPARTATE AMINOTRANSFERASE 138 IU/L (<34)
[2025-02-22 07:06] LABS: BILIRUBIN DIRECT 12.7 mg/dL (<=3.0); BILIRUBIN TOTAL 20.4 mg/dL (0.1-1.0); PHOSPHORUS 4.5 mg/dL (2.5-4.9); PROTEIN TOTAL 7.1 g/dL (6.0-8.3)
[2025-02-22 09:12] LABS: INR 2.6
[2025-02-22] MEDS: MIDODRINE HCL 5MG TABLET PO SCH ×2 (09:14→16:23)
[2025-02-22 09:38] LABS: BG BASE EXCESS -4.2 mmol/L (-2.0-3.0); BG CARBOXYHEMOGLOBIN 3.4 % (0.5-1.5); BG DEOXYHEMOGLOBIN 2.5 % (0.0-5.0); BG FRACTION INSPIRED OXYGEN 50; BG HCO3 ACT 19.5 mmol/L (21.0-28.0); BG METHEMOGLOBIN 0.3 % (0.5-1.5); BG OXYGEN SATURATION 97.4 % (94.0-98.0); BG OXYHEMOGLOBIN 93.8 % (94.0-98.0); BG PCO2 28.3 mmHg (35.0-48.0); BG PEEP (cmH2O) 5.0 cmH2O; BG PH 7.455 (7.350-7.450); BG PO2 87.4 mmHg (83.0-108.0); BG SAMPLE SITE RIGHT RADIAL; BG TOTAL HEMOGLOBIN 5.4 g/dL (13.5-17.5); BG VENT MODE VENT - P/C; BG VENT RATE 28.0 set
[2025-02-22] MEDS: CALCIUM GLUCONATE 100MG/ML 10ML VIAL IV NR (09:53)
[2025-02-22 12:56] LABS: INR 2.1
[2025-02-22] MEDS: PHENYLEPHRINE 100 MG in DEXT 5% WATER 240 ML IV PRN (14:09)
[2025-02-22] MEDS: VANCOMYCIN 1GM/200ML PMX (BAXTER) IV SCH (17:57)
[2025-02-22] MEDS: OCTREOTIDE 1,000 MCG in SODIUM CHLORIDE 0.9% 98 ML IV SCH (18:00)
[2025-02-22] MEDS: SODIUM BICARBONATE 150 MEQ in DEXTROSE 5% WATER 850 ML IV SCH (20:56)
[2025-02-23] VITALS (100 sets, daily range): BP systolic 90–150; BP diastolic 35–76; PULSE 52–84; RESP 15–30; TEMP 97.9–100.3; O2SAT 93–100
[2025-02-23] MEDS ORDERED: POTASSIUM CHLORIDE 40 MEQ in DEXT 5% WATER 230 ML IV ONE (01:45)
[2025-02-23] MEDS: KCL 20MEQ/100ML X 2 FOR TOTAL KCL 40MEQ/200ML IV SCH (01:57)
[2025-02-23] MEDS: DOPAMINE 800MG PREMIX (DOUBLE) 250 ML IV PRN (05:01)
[2025-02-23] MEDS: LACTULOSE 20G/30ML UDC NG SCH ×2 (05:11→11:30)
[2025-02-23 05:45] LABS: BASOPHILS % 0.3 % (0.0-2.0); EOSINOPHILS % 0.0 % (0.0-5.0); HEMATOCRIT. 23.5 % (42.0-52.0); HEMOGLOBIN. 7.8 g/dL (14.0-18.0); LYMPHOCYTES % 6.4 % (20.0-50.0); MEAN PLATELET VOLUME 7.7 fl (7.4-10.4); MONOCYTES % 6.0 % (2.0-8.0); NEUTROPHILS % 87.3 % (40.0-76.0); PLATELET 94 x1000/uL (130-400); RED BLOOD CELL COUNT 2.45 mill/uL (4.7-6.1); RED CELL DISTRIBUTION WIDTH 23.9 % (11.6-14.6)
[2025-02-23 05:58] LABS: INR 2.7
[2025-02-23 06:08] LABS: UREA NITROGEN BLOOD 55 mg/dL (9-23)
[2025-02-23 06:09] LABS: ASPARTATE AMINOTRANSFERASE 104 IU/L (<34)
[2025-02-23 06:10] LABS: BILIRUBIN DIRECT 13.8 mg/dL (<=3.0); PHOSPHORUS 4.5 mg/dL (2.5-4.9); PROTEIN TOTAL 7.2 g/dL (6.0-8.3)
[2025-02-23 06:11] LABS: BILIRUBIN TOTAL 19.4 mg/dL (0.1-1.0)
[2025-02-23 06:12] LABS: CREATININE 2.6 mg/dL (0.6-1.3)
[2025-02-23] MEDS: CALCIUM GLUCONATE 100MG/ML 10ML VIAL IV SCH (09:10)
[2025-02-23] MEDS: KCL 20MEQ/100ML PREMIX 100 ML IV SCH (09:11)
[2025-02-23] MEDS: POTASSIUM CHLORIDE 20MEQ TABLET SR PO SCH ×2 (09:11→18:42)
[2025-02-23 11:39] LABS: BG BASE EXCESS 3.5 mmol/L (-2.0-3.0); BG CARBOXYHEMOGLOBIN 2.3 % (0.5-1.5); BG DEOXYHEMOGLOBIN 7.4 % (0.0-5.0); BG FRACTION INSPIRED OXYGEN 40; BG HCO3 ACT 25.4 mmol/L (21.0-28.0); BG METHEMOGLOBIN 0.3 % (0.5-1.5); BG OXYGEN SATURATION 92.4 % (94.0-98.0); BG OXYHEMOGLOBIN 90.0 % (94.0-98.0); BG PCO2 28.0 mmHg (35.0-48.0); BG PEEP (cmH2O) 5.0 cmH2O; BG PH 7.576 (7.350-7.450); BG PO2 61.0 mmHg (83.0-108.0); BG SAMPLE SITE RIGHT RADIAL; BG TOTAL HEMOGLOBIN 7.7 g/dL (13.5-17.5); BG VENT MODE VENT - PRVC; BG VENT RATE 28.0 set
[2025-02-23] MEDS: IPRATROPIUM/ALBUTEROL 0.5-3(2.5)MG/3ML NEB HHN PRN (12:32)
[2025-02-23] MEDS: DEXT 5%/0.9% NACL 1,000 ML IV SCH (14:07)
[2025-02-23] MEDS ORDERED: PROPOFOL 200MG/20ML VIAL IV ONE (16:04)
[2025-02-23] MEDS: VANCOMYCIN 1GM/200ML PMX (BAXTER) IV SCH (18:41)
[2025-02-23] MEDS: SUCRALFATE 1G TABLET PO SCH (21:31)
[2025-02-24] VITALS (99 sets, daily range): BP systolic 89–132; BP diastolic 38–99; PULSE 47–112; RESP 14–31; TEMP 36.2–37.4; O2SAT 94–100
[2025-02-24] MEDS: KCL 20MEQ/100ML PREMIX 100 ML IV SCH ×2 (00:55→08:49)
[2025-02-24 05:26] LABS: HEMATOCRIT. 25.1 % (42.0-52.0); HEMOGLOBIN. 8.2 g/dL (14.0-18.0); MEAN PLATELET VOLUME 8.2 fl (7.4-10.4); PLATELET 91 x1000/uL (130-400); RED BLOOD CELL COUNT 2.59 mill/uL (4.7-6.1); RED CELL DISTRIBUTION WIDTH 24.0 % (11.6-14.6)
[2025-02-24 05:38] LABS: CREATININE 3.1 mg/dL (0.6-1.3)
[2025-02-24 05:39] LABS: UREA NITROGEN BLOOD 74 mg/dL (9-23)
[2025-02-24 05:40] LABS: ASPARTATE AMINOTRANSFERASE 124 IU/L (<34); BILIRUBIN DIRECT 13.6 mg/dL (<=3.0)
[2025-02-24 05:41] LABS: BILIRUBIN TOTAL 18.6 mg/dL (0.1-1.0); PHOSPHORUS 4.4 mg/dL (2.5-4.9); PROTEIN TOTAL 6.8 g/dL (6.0-8.3)
[2025-02-24 07:40] LABS: BAND% 22.0 % (1.0-6.0); LYMPHOCYTES % MANUAL 1.0 % (20.0-50.0); MONOCYTES % MANUAL 2.0 % (2.0-8.0); NEUTROPHILS % MANUAL 75.0 % (45.0-75.0); NUCLEATED RED BLOOD CELLS 2 /100 WBC; PLATELET ESTIMATE SLIGHTLY DECREASED
[2025-02-24 08:32] LABS: BG BASE EXCESS 0.8 mmol/L (-2.0-3.0); BG CARBOXYHEMOGLOBIN 2.2 % (0.5-1.5); BG DEOXYHEMOGLOBIN 2.4 % (0.0-5.0); BG FRACTION INSPIRED OXYGEN 40; BG HCO3 ACT 23.8 mmol/L (21.0-28.0); BG METHEMOGLOBIN 0.1 % (0.5-1.5); BG OXYGEN SATURATION 97.5 % (94.0-98.0); BG OXYHEMOGLOBIN 95.3 % (94.0-98.0); BG PCO2 31.7 mmHg (35.0-48.0); BG PEEP (cmH2O) 5.0 cmH2O; BG PH 7.494 (7.350-7.450); BG PO2 93.8 mmHg (83.0-108.0); BG SAMPLE SITE RIGHT RADIAL; BG TIDAL VOLUME(mL) 500.0 mL; BG TOTAL HEMOGLOBIN 8.5 g/dL (13.5-17.5); BG TOTAL RESPIRATORY RATE 24 b/min; BG VENT MODE VENT-PRVC; BG VENT RATE 22.0 set
[2025-02-24] MEDS: POTASSIUM CHLORIDE 20MEQ TABLET SR PO NR (08:48)
[2025-02-24 11:37] LABS: INR 2.5
[2025-02-24] MEDS: POTASSIUM CHLORIDE 20MEQ TABLET SR PO PRN (23:20)
[2025-02-25] VITALS (107 sets, daily range): BP systolic 82–128; BP diastolic 40–81; PULSE 48–106; RESP 12–28; TEMP 36.4–37.1; O2SAT 100
[2025-02-25 06:08] LABS: HEMATOCRIT. 24.8 % (42.0-52.0); HEMOGLOBIN. 7.8 g/dL (14.0-18.0); MEAN PLATELET VOLUME 9.0 fl (7.4-10.4); PLATELET 82 x1000/uL (130-400); RED BLOOD CELL COUNT 2.42 mill/uL (4.7-6.1); RED CELL DISTRIBUTION WIDTH 24.4 % (11.6-14.6)
[2025-02-25 06:27] LABS: CREATININE 3.1 mg/dL (0.6-1.3); INR 2.2; UREA NITROGEN BLOOD 84 mg/dL (9-23)
[2025-02-25 06:29] LABS: ASPARTATE AMINOTRANSFERASE 177 IU/L (<34); BILIRUBIN DIRECT 14.9 mg/dL (<=3.0)
[2025-02-25 06:30] LABS: BILIRUBIN TOTAL 20.6 mg/dL (0.1-1.0); PHOSPHORUS 5.0 mg/dL (2.5-4.9); PROTEIN TOTAL 6.8 g/dL (6.0-8.3)
[2025-02-25] MEDS: DEXMEDETOMIDINE 400 MCG/100 ML 100 ML IV PRN (06:50)
[2025-02-25 08:46] LABS: BG BASE EXCESS -0.7 mmol/L (-2.0-3.0); BG CARBOXYHEMOGLOBIN 3.0 % (0.5-1.5); BG DEOXYHEMOGLOBIN 2.3 % (0.0-5.0); BG FRACTION INSPIRED OXYGEN 40; BG HCO3 ACT 22.9 mmol/L (21.0-28.0); BG METHEMOGLOBIN 0.6 % (0.5-1.5); BG OXYGEN SATURATION 97.6 % (94.0-98.0); BG OXYHEMOGLOBIN 94.1 % (94.0-98.0); BG PCO2 32.8 mmHg (35.0-48.0); BG PEEP (cmH2O) 5.0 cmH2O; BG PH 7.461 (7.350-7.450); BG PO2 95.1 mmHg (83.0-108.0); BG SAMPLE SITE RIGHT RADIAL; BG TOTAL HEMOGLOBIN 7.4 g/dL (13.5-17.5); BG VENT MODE VENT - CPAP
[2025-02-25] MEDS: DEXTROSE 5% WATER 1,000 ML IV SCH (10:35)
[2025-02-25] MEDS: SUCRALFATE 1G TABLET NG SCH (17:16)
[2025-02-25] MEDS: METOCLOPRAMIDE HCL 10MG/2ML VIAL IV NR (17:16)
[2025-02-25] MEDS: PHYTONADIONE 10 MG in DEXTROSE 5% WATER 49 ML IV NR (17:16)
[2025-02-25 17:37] LABS: LYMPHOCYTES % MANUAL 7.0 % (20.0-50.0); MONOCYTES % MANUAL 6.0 % (2.0-8.0); NEUTROPHILS % MANUAL 87.0 % (45.0-75.0); PLATELET ESTIMATE DECREASED
[2025-02-25] MEDS: LACTULOSE 20G/30ML UDC NG SCH (22:44)
[2025-02-26] VITALS (113 sets, daily range): BP systolic 72–150; BP diastolic 32–116; PULSE 52–123; RESP 14–46; TEMP 37.2–37.8; O2SAT 91–100
[2025-02-26 05:43] LABS: HEMATOCRIT. 27.0 % (42.0-52.0); HEMOGLOBIN. 8.4 g/dL (14.0-18.0); MEAN PLATELET VOLUME 9.3 fl (7.4-10.4); PLATELET 59 x1000/uL (130-400); RED BLOOD CELL COUNT 2.64 mill/uL (4.7-6.1); RED CELL DISTRIBUTION WIDTH 23.7 % (11.6-14.6)
[2025-02-26 06:00] LABS: CREATININE 2.2 mg/dL (0.6-1.3); UREA NITROGEN BLOOD 68 mg/dL (9-23)
[2025-02-26 06:02] LABS: ASPARTATE AMINOTRANSFERASE 179 IU/L (<34)
[2025-02-26 06:03] LABS: BILIRUBIN DIRECT > 15.0 mg/dL (<=3.0); PROTEIN TOTAL 7.0 g/dL (6.0-8.3)
[2025-02-26 06:12] LABS: BILIRUBIN TOTAL 23.0 mg/dL (0.1-1.0)
[2025-02-26 10:04] LABS: BG BASE EXCESS -1.4 mmol/L (-2.0-3.0); BG CARBOXYHEMOGLOBIN 1.9 % (0.5-1.5); BG DEOXYHEMOGLOBIN 3.3 % (0.0-5.0); BG FRACTION INSPIRED OXYGEN 40; BG HCO3 ACT 22.5 mmol/L (21.0-28.0); BG METHEMOGLOBIN 0.3 % (0.5-1.5); BG OXYGEN SATURATION 96.6 % (94.0-98.0); BG OXYHEMOGLOBIN 94.5 % (94.0-98.0); BG PCO2 34.5 mmHg (35.0-48.0); BG PEEP (cmH2O) 5.0 cmH2O; BG PH 7.432 (7.350-7.450); BG PO2 87.6 mmHg (83.0-108.0); BG SAMPLE SITE RIGHT RADIAL; BG TIDAL VOLUME(mL) 500.0 mL; BG TOTAL HEMOGLOBIN 9.3 g/dL (13.5-17.5); BG VENT MODE VENT - PRVC; BG VENT RATE 16.0 set
[2025-02-26 10:21] LABS: BAND% 2.0 % (1.0-6.0); LYMPHOCYTES % MANUAL 1.0 % (20.0-50.0); MONOCYTES % MANUAL 1.0 % (2.0-8.0); NEUTROPHILS % MANUAL 96.0 % (45.0-75.0)
[2025-02-26 10:22] LABS: PLATELET ESTIMATE DECREASED
[2025-02-26 10:58] LABS: INR 2.1
[2025-02-26 11:52] LABS: BG BASE EXCESS -3.1 mmol/L (-2.0-3.0); BG CARBOXYHEMOGLOBIN 1.8 % (0.5-1.5); BG CPAP (cmH2O) 8.0 cm(H2O); BG DEOXYHEMOGLOBIN 3.8 % (0.0-5.0); BG FRACTION INSPIRED OXYGEN 40; BG HCO3 ACT 20.0 mmol/L (21.0-28.0); BG METHEMOGLOBIN 0.3 % (0.5-1.5); BG OXYGEN SATURATION 96.1 % (94.0-98.0); BG OXYHEMOGLOBIN 94.1 % (94.0-98.0); BG PCO2 28.9 mmHg (35.0-48.0); BG PEEP (cmH2O) 5.0 cmH2O; BG PH 7.457 (7.350-7.450); BG PO2 81.5 mmHg (83.0-108.0); BG SAMPLE SITE RIGHT BRACHIAL; BG TOTAL HEMOGLOBIN 9.7 g/dL (13.5-17.5); BG VENT MODE VENT - CPAP
[2025-02-27] VITALS (103 sets, daily range): BP systolic 61–123; BP diastolic 33–83; PULSE 81–142; RESP 18–40; TEMP 36.16956–37.9; O2SAT 89–100
[2025-02-27] MEDS: TRAMADOL 50MG TABLET PO NR (00:35)
[2025-02-27] MEDS ORDERED: MIDAZOLAM 100MG/100ML PMX 100 ML IV PRN (03:45)
[2025-02-27] MEDS ORDERED: FENTANYL 2500MCG/250ML PMX 250 ML IV PRN (03:45)
[2025-02-27] MEDS: VASOPRESSIN 20 UNIT in SODIUM CHLORIDE 0.9% 99 ML IV PRN (03:47)
[2025-02-27] MEDS ORDERED: EPINEPHRINE 10 MG in SODIUM CHLORIDE 0.9% 240 ML IV PRN (04:15)
[2025-02-27 05:09] LABS: UREA NITROGEN BLOOD 81 mg/dL (9-23)
[2025-02-27 05:11] LABS: PHOSPHORUS 7.3 mg/dL (2.5-4.9)
[2025-02-27 05:12] LABS: CREATININE 3.8 mg/dL (0.6-1.3)
[2025-02-27 05:17] LABS: BG BASE EXCESS -27.3 mmol/L (-2.0-3.0); BG CARBOXYHEMOGLOBIN 0.7 % (0.5-1.5); BG DEOXYHEMOGLOBIN 4.8 % (0.0-5.0); BG FRACTION INSPIRED OXYGEN 100; BG HCO3 ACT 6.3 mmol/L (21.0-28.0); BG METHEMOGLOBIN 0.3 % (0.5-1.5); BG OXYGEN SATURATION 95.2 % (94.0-98.0); BG OXYHEMOGLOBIN 94.2 % (94.0-98.0); BG PCO2 43.0 mmHg (35.0-48.0); BG PEEP (cmH2O) 5.0 cmH2O; BG PH 6.786 (7.350-7.450); BG PO2 134.0 mmHg (83.0-108.0); BG SAMPLE SITE LEFT RADIAL; BG TIDAL VOLUME(mL) 450.0 mL; BG TOTAL HEMOGLOBIN 9.3 g/dL (13.5-17.5); BG TOTAL RESPIRATORY RATE 18 b/min; BG VENT MODE VENT - AC; BG VENT RATE 18.0 set
[2025-02-27] MEDS ORDERED: EPINEPHRINE 20 MG in SODIUM CHLORIDE 0.9% 230 ML IV PRN (05:45)
[2025-02-27] MEDS: SODIUM BICARBONATE 8.4% 50MEQ/50ML SYR IV NR (05:49)
[2025-02-27] MEDS: EPINEPHRINE 20 MG in SODIUM CHLORIDE 0.9% 480 ML IV PRN (06:16)
[2025-02-27] MEDS: SODIUM BICARBONATE 100 MEQ in DEXTROSE 5% WATER 900 ML IV SCH (06:54)
[2025-02-27 08:20] LABS: BG BASE EXCESS -26.3 mmol/L (-2.0-3.0); BG CARBOXYHEMOGLOBIN 2.0 % (0.5-1.5); BG DEOXYHEMOGLOBIN 0.2 % (0.0-5.0); BG FRACTION INSPIRED OXYGEN 100; BG HCO3 ACT 5.9 mmol/L (21.0-28.0); BG METHEMOGLOBIN 0.2 % (0.5-1.5); BG OXYGEN SATURATION 99.8 % (94.0-98.0); BG OXYHEMOGLOBIN 97.6 % (94.0-98.0); BG PCO2 39.2 mmHg (35.0-48.0); BG PEEP (cmH2O) 5.0 cmH2O; BG PH 6.798 (7.350-7.450); BG PO2 230.7 mmHg (83.0-108.0); BG SAMPLE SITE RIGHT BRACHIAL; BG TIDAL VOLUME(mL) 450.0 mL; BG TOTAL HEMOGLOBIN 6.2 g/dL (13.5-17.5); BG VENT MODE VENT - AC; BG VENT RATE 18.0 set
[2025-02-27] MEDS ORDERED: ETOMIDATE 2MG/ML 10ML VIAL IV ONE (09:28)
[2025-02-27] MEDS ORDERED: LORAZEPAM 2MG/ML UD SYRINGE IV PRN (09:30)
[2025-02-27 10:14] LABS: BG BASE EXCESS -25.7 mmol/L (-2.0-3.0); BG CARBOXYHEMOGLOBIN 2.0 % (0.5-1.5); BG DEOXYHEMOGLOBIN 12.0 % (0.0-5.0); BG FRACTION INSPIRED OXYGEN 100; BG HCO3 ACT 4.2 mmol/L (21.0-28.0); BG METHEMOGLOBIN 0.4 % (0.5-1.5); BG OXYGEN SATURATION 87.7 % (94.0-98.0); BG OXYHEMOGLOBIN 85.6 % (94.0-98.0); BG PCO2 20.0 mmHg (35.0-48.0); BG PEEP (cmH2O) 5.0 cmH2O; BG PH 6.935 (7.350-7.450); BG PO2 81.0 mmHg (83.0-108.0); BG SAMPLE SITE RIGHT BRACHIAL; BG TIDAL VOLUME(mL) 450.0 mL; BG TOTAL HEMOGLOBIN 5.5 g/dL (13.5-17.5); BG VENT MODE VENT - AC; BG VENT RATE 18.0 set
[2025-02-27 12:24] LABS: ASPARTATE AMINOTRANSFERASE 988 IU/L (<34)
[2025-02-27 12:25] LABS: BILIRUBIN DIRECT 11.7 mg/dL (<=3.0); BILIRUBIN TOTAL 14.7 mg/dL (0.1-1.0)
[2025-02-27 12:59] LABS: PROTEIN TOTAL 4.7 g/dL (6.0-8.3)
[2025-02-27] MEDS: MEROPENEM 500MG/50ML 50 ML IV SCH (15:51)
[2025-02-27 16:06] LABS: MEAN PLATELET VOLUME 11.4 fl (7.4-10.4); PLATELET 63 x1000/uL (130-400); RED BLOOD CELL COUNT 1.70 mill/uL (4.7-6.1); RED CELL DISTRIBUTION WIDTH 25.4 % (11.6-14.6)
[2025-02-27 16:15] LABS: HEMOGLOBIN. 5.6 g/dL (14.0-18.0)
[2025-02-27 16:16] LABS: HEMATOCRIT. 22.0 % (42.0-52.0)
[2025-02-27 16:43] LABS: INR 4.8
[2025-02-27] MEDS: SODIUM ZIRCONIUM CYCLOSILICATE 10GM/PACKET PO SCH (17:15)
[2025-02-27] MEDS ORDERED: SODIUM BICARBONATE 8.4% 50MEQ/50ML VIAL IV ONE (17:15)
[2025-02-27] MEDS: SODIUM BICARBONATE 8.4% 50MEQ/50ML SYR IV SCH (17:34)
[2025-02-27] MEDS: CALCIUM GLUCONATE 100MG/ML 10ML VIAL IV SCH (18:37)
[2025-02-27 21:04] LABS: BAND% 3.0 % (1.0-6.0); LYMPHOCYTES % MANUAL 6.0 % (20.0-50.0); MONOCYTES % MANUAL 2.0 % (2.0-8.0); NEUTROPHILS % MANUAL 89.0 % (45.0-75.0); PLATELET ESTIMATE DECREASED
[2025-02-27] MEDS: DEXTROSE 50% WATER 50ML SYRINGE IV NR (21:31)
[2025-02-27] MEDS: CALCIUM CHLORIDE 1GM/10ML SYR IV NR (21:32)
[2025-02-27] MEDS: INSULIN REGULAR (HUMULIN R) 1000UNITS/10ML VIAL IV NR (21:34)
[2025-02-27] MEDS: SODIUM ZIRCONIUM CYCLOSILICATE 10GM/PACKET PO NR (21:35)
[2025-02-28] VITALS: BP 85/45; PULSE 85; RESP 20; TEMP 97; O2SAT 82
[2025-02-28 00:15] VITALS: BP 76/45; PULSE 104; RESP 18; TEMP 96.9; O2SAT 82
[2025-02-28 00:30] VITALS: BP 85/45; PULSE 85; RESP 20; TEMP 36.1; O2SAT 82
[2025-02-28] MEDS ORDERED: DEXTROSE 50% WATER 50ML SYRINGE IV ONE (10:33)
== END 2025-02-28 00:41 | DRG 720 ==
LOC: ER 18:45 → EDBEDREQ 19:02 → 7WST 23:08 → EDBEDREQTM 23:19 → EDBEDREQ 23:19 → ENRESERV 23:37 → 5EST 02-16 14:10 → MICUSO 02-19 17:08
PROVIDERS: ADMIT Internal Medicine; ATTEND Internal Medicine
PROC: 30233N1 Transfusion of Nonautologous Red Blood Cells into Peripheral Vein, Percutaneous Approach (ICD-10-PCS; principal; 2025-02-14)
PROC: 30233K1 Transfusion of Nonautologous Frozen Plasma into Peripheral Vein, Percutaneous Approach (ICD-10-PCS; 2025-02-15)
PROC: 6A550Z2 Pheresis of Platelets, Single (ICD-10-PCS; 2025-02-17)
PROC: 5A1955Z Respiratory Ventilation, Greater than 96 Consecutive Hours (ICD-10-PCS; 2025-02-19)
PROC: 0BH17EZ Insertion of Endotracheal Airway into Trachea, Via Natural or Artificial Opening (ICD-10-PCS; 2025-02-19)
PROC: 02H633Z Insertion of Infusion Device into Right Atrium, Percutaneous Approach (ICD-10-PCS; 2025-02-20)
PROC: B548ZZA Ultrasonography of Superior Vena Cava, Guidance (ICD-10-PCS; 2025-02-20)
PROC: 5A1D70Z Performance of Urinary Filtration, Intermittent, Less than 6 Hours Per Day (ICD-10-PCS; 2025-02-20)
PROC: 5A1D70Z Performance of Urinary Filtration, Intermittent, Less than 6 Hours Per Day (ICD-10-PCS; 2025-02-22)
PROC: 0DB78ZX Excision of Stomach, Pylorus, Via Natural or Artificial Opening Endoscopic, Diagnostic (ICD-10-PCS; 2025-02-23)
PROC: 5A1D70Z Performance of Urinary Filtration, Intermittent, Less than 6 Hours Per Day (ICD-10-PCS; 2025-02-25)
PROC: 0BH17EZ Insertion of Endotracheal Airway into Trachea, Via Natural or Artificial Opening (ICD-10-PCS; 2025-02-27)
PROC: 5A1935Z Respiratory Ventilation, Less than 24 Consecutive Hours (ICD-10-PCS; 2025-02-27)
PROC: 5A12012 Performance of Cardiac Output, Single, Manual (ICD-10-PCS; 2025-02-28)
DX: A41.9 Sepsis, unspecified organism (principal); N17.0 Acute kidney failure with tubular necrosis; J96.01 Acute respiratory failure with hypoxia; R65.21 Severe sepsis with septic shock; E44.0 Moderate protein-calorie malnutrition; K70.40 Alcoholic hepatic failure without coma; K65.2 Spontaneous bacterial peritonitis; G93.41 Metabolic encephalopathy; J18.9 Pneumonia, unspecified organism; K92.2 Gastrointestinal hemorrhage, unspecified; D68.9 Coagulation defect, unspecified; K76.82 Hepatic encephalopathy; K70.10 Alcoholic hepatitis without ascites; D69.6 Thrombocytopenia, unspecified; E83.51 Hypocalcemia; E87.1 Hypo-osmolality and hyponatremia; E87.20 Acidosis, unspecified; F10.229 Alcohol dependence with intoxication, unspecified; F10.239 Alcohol dependence with withdrawal, unspecified; K31.89 Other diseases of stomach and duodenum; D53.9 Nutritional anemia, unspecified; Z68.35 Body mass index [BMI] 35.0-35.9, adult; E03.9 Hypothyroidism, unspecified; J98.11 Atelectasis; K70.30 Alcoholic cirrhosis of liver without ascites; R16.2 Hepatomegaly with splenomegaly, not elsewhere classified; N39.0 Urinary tract infection, site not specified; E87.6 Hypokalemia; E87.0 Hyperosmolality and hypernatremia; Y90.9 Presence of alcohol in blood, level not specified; I46.9 Cardiac arrest, cause unspecified; K70.31 Alcoholic cirrhosis of liver with ascites; K70.11 Alcoholic hepatitis with ascites; K70.0 Alcoholic fatty liver; E88.09 Other disorders of plasma-protein metabolism, not elsewhere classified; Z79.899 Other long term (current) drug therapy; Z82.49 Family history of ischemic heart disease and other diseases of the circulatory system
CPT/HCPCS: 31500; 31720; 36415; 36556; 36600; 71045; 76700; 76705; 77001; 80048; 80061; 80076; 80202; 80305; 80320; 81003; 82040; 82105; 82140; 82270; 82375; 82550; 82607; 82728; 82746; 82805; 82962; 82977; 83036; 83540; 83550; 83605; 83615; 83735; 83880; 84100; 84132; 84145; 84439; 84443; 84478; 84484; 85014; 85018; 85025; 85027; 85044; 86705; 86709; 86850; 86900; 86920; 86927; 87070; 87106; 87340; 88305; 90935; 93005; 93970; 94002; 94003; 94070; 94640; 94664; 94760; 98960; 99291; A4606; C1752; C1887; J0610; J0696; J1171; J1265; J1720; J1815; J2003; J2060; J2185; J2250; J2354; J2371; J2470; J2543; J2704; J2765; J3010; J3373; J3411; J3430; J3480; J3490; J7040; J7042; J7050; J7060; J7070; P9016; P9017; P9034; P9047; G0480; J0131